=== PATIENT | female | born 1950 | race Caucasian/White ===

== ENCOUNTER 2017-10-25 21:26 | Inpatient (IN) | payer OTHER, MEDICAID ==
[~2017-10-25] VITALS: Ht 154.9 cm; Wt 94.5 kg
[2017-10-25 21:41] VITALS: Ht 154.9 cm; Wt 94.5 kg
[2017-10-25 23:18] LABS: BASOPHIL % 0.6 % (0-2); PLATELET COUNT 333 x10^3mcL (130-400); RED CELL DISTRIBUTION WIDTH 13.8 % (11.5-14.5)
[2017-10-25 23:37] LABS: CALCIUM 9.1 mg/dL (8.5-10.1); CARBON DIOXIDE 25.8 mmol/L (21-32); CREATININE SERUM 1.2 mg/dL (0.6-1.0)
[2017-10-25 23:42] LABS: ALBUMIN 4.3 g/dL (3.4-5.0); BILIRUBIN TOTAL 0.65 mg/dL (0.20-1.00)
[2017-10-25 23:43] LABS: TOTAL PROTEIN, SERUM 8.8 g/dL (6.4-8.2)
[2017-10-26] MEDS ORDERED: DIO80 PO (00:48)
[2017-10-26 01:19] VITALS: BP 161/69
[2017-10-26 01:24] LABS: UA SPECIFIC GRAVITY >=1.030 (1.005-1.035); microscopic required? YES; urine erythrocyte NEGATIVE (NEGATIVE)
[2017-10-26 02:30] LABS: CHOLESTEROL/HDL RATIO 3.6; MAGNESIUM 2.5 mg/dL (1.8-2.4); PHOSPHOROUS 3.9 mg/dL (2.5-4.9)
[2017-10-26 02:39] LABS: FREE T4 1.04 ng/dL (0.76-1.46); FREE THYROXINE INDEX 2.6 ug/dL (1.4-4.5); T4(THYROXINE) 7.7 ug/dL (4.7-13.3)
[2017-10-26 04:34] LABS: T3 TOTAL 1.05 ng/mL
[2017-10-26 05:21] VITALS: BP 121/45
[2017-10-26 09:11] VITALS: BP 115/49
[2017-10-26 12:41] VITALS: BP 126/57
[2017-10-26 17:12] VITALS: BP 102/41
[2017-10-26] MEDS ORDERED: LIPI10 PO (17:38)
[2017-10-26 18:34] VITALS: BP 102/41
== END 2017-10-26 19:54 | disposition home or self-care (01) | DRG 393 ==
LOC: ED 21:26 → DU 10-26 00:47
PROVIDERS: Emergency Medicine; Internal Medicine; Internal Medicine Gastroenterology
PROC: 0DC38ZZ Extirpation of Matter from Lower Esophagus, Via Natural or Artificial Opening Endoscopic (ICD-10-PCS; principal; 2017-10-26 12:45)
PROC: 0DB68ZX Excision of Stomach, Via Natural or Artificial Opening Endoscopic, Diagnostic (ICD-10-PCS; 2017-10-26 12:45)
DX: K95.09 Other complications of gastric band procedure (principal); N17.0 Acute kidney failure with tubular necrosis; K56.609 Unspecified intestinal obstruction, unspecified as to partial versus complete obstruction; T18.128A Food in esophagus causing other injury, initial encounter; E78.5 Hyperlipidemia, unspecified; Z68.39 Body mass index [BMI] 39.0-39.9, adult; Z98.84 Bariatric surgery status; Y73.2 Prosthetic and other implants, materials and accessory gastroenterology and urology devices associated with adverse incidents; Y84.8 Other medical procedures as the cause of abnormal reaction of the patient, or of later complication, without mention of misadventure at the time of the procedure; Y92.009 Unspecified place in unspecified non-institutional (private) residence as the place of occurrence of the external cause
CPT/HCPCS: 43235; 83880; 84439; J1200; J1610; J2250; J2310; J2765; J3010; J3490; J7030; Q0092

== ENCOUNTER 2018-01-21 10:04 | Emergency (ER) | payer OTHER ==
[~2018-01-21] VITALS: Ht 152.4 cm; Wt 94.3 kg
[~2018-01-21 10:04] MED LIST: DIO80 PO; LIPI10 PO
[2018-01-21 10:16] VITALS: Ht 152.4 cm; Wt 94.3 kg
[2018-01-21 11:02] LABS: CALCIUM 8.8 mg/dL (8.5-10.1); CARBON DIOXIDE 26.6 mmol/L (21-32); CHLORIDE SERUM 106 mmol/L (98-107); CREATININE SERUM 0.8 mg/dL (0.6-1.0); GFR1 > 60 mL/min; GLUCOSE SERUM 105 mg/dL (74-106); POTASSIUM SERUM 4.1 mmol/L (3.5-5.1); SODIUM SERUM 144 mmol/L (136-145)
[2018-01-21 11:06] LABS: ALBUMIN 3.7 g/dL (3.4-5.0); ALKALINE PHOSPHATASE 100 U/L (46-116); ALT/SGPT 30 U/L (14-59); AST/SGOT 14 U/L (15-37); BILIRUBIN TOTAL 0.57 mg/dL (0.20-1.00); LIPASE 149 IU/L (73-393); TOTAL PROTEIN, SERUM 8.2 g/dL (6.4-8.2)
[2018-01-21 11:23] LABS: BASOPHIL % 0.9 % (0-2); PLATELET COUNT 336 x10^3mcL (130-400)
[2018-01-21 13:22] VITALS: BP 125/58
== END 2018-01-21 13:22 | disposition home or self-care (01) ==
LOC: ED 10:04
PROVIDERS: Emergency Medicine
DX: N39.0 Urinary tract infection, site not specified (principal); R51 Headache; I10 Essential (primary) hypertension; Z90.710 Acquired absence of both cervix and uterus; Z98.890 Other specified postprocedural states
CPT/HCPCS: J2060; J2270; J2405; Q9967

== ENCOUNTER 2019-04-20 16:14 | Emergency (ER) | payer OTHER ==
[~2019-04-20] VITALS: Ht 157.5 cm; Wt 98.9 kg
[2019-04-20 16:31] VITALS: Ht 157.5 cm; Wt 98.9 kg
[2019-04-20 19:16] VITALS: BP 147/82
== END 2019-04-20 19:16 | disposition home or self-care (01) ==
LOC: ED 16:14
DX: M19.012 Primary osteoarthritis, left shoulder (principal); I10 Essential (primary) hypertension; Z90.710 Acquired absence of both cervix and uterus; E78.00 Pure hypercholesterolemia, unspecified; Z98.84 Bariatric surgery status
CPT/HCPCS: J1100; J1885